=== PATIENT | female | born 1990 | race Caucasian/White ===

== ENCOUNTER → 2017-02-22 | Outpatient (REF) | payer MEDICAID ==
[2017-02-22 18:10] LABS: MEAN CORPUSCULAR HEMOGLOBIN 31.2 pg (27.0-33.0); MEAN CORPUSCULAR HGB CONC 34.3 g/dl (32.0-36.5); RED CELL DISTRIBUTION WIDTH 12.1 % (11.5-14.5)
[2017-02-22 19:21] LABS: HCG, SERUM QUANTITATIVE 37312 MIU/ML
== END ==
LOC: M LAB REF 16:45
PROVIDERS: ATTEND Advanced Practice Midwife
DX: O36.80X0 Pregnancy with inconclusive fetal viability, not applicable or unspecified (principal)

== ENCOUNTER → 2017-05-19 | Outpatient (CLI) | payer OTHER ==
--- NOTE | 2017-05-19 09:32 | REP ---
OB ULTRASOUND: Real-time sonographic evaluation of the gravid uterus performed. There is a single living intrauterine gestation with estimated gestational age of 19 weeks 6 days. EDC 10/07/2017. BPD 48 mm 20 weeks 4 days HC 175 mm 20 weeks 0 days AC 149 mm 20 weeks 1 day FL 32 mm 19 weeks 6 days HC/AC ratio 1.17 within normal range. Estimated weight 327 grams. heart rate 147 beats per minute. SEEN/GROSSLY UNREMARKABLE Lateral ventricles Yes Posterior fossa Yes Upper lip Yes Four-chamber heart Yes LVOT Yes RVOT Yes Stomach Yes Cord insertion Yes Three vessel cord Yes Kidneys Yes Bladder Yes Spine No position is vertex. Placenta posterior and grade 0 with no previa or abruption. Amniotic fluid within normal limits. Cervix is closed and measures 3.7 cm in length. Signed by Braydon Noriega MD 05/19/2017 04:53 P
== END ==
LOC: M SMT 08:13
PROVIDERS: ATTEND Advanced Practice Midwife
DX: Z34.81 Encounter for supervision of other normal pregnancy, first trimester (principal); Z3A.19 19 weeks gestation of pregnancy

== ENCOUNTER → 2017-06-07 | Outpatient (CLI) | payer OTHER ==
--- NOTE | 2017-06-07 10:04 | REP ---
Obstetric sonography: History: Supervision of followup anatomy. Comparison study May 19, 2017. Findings: Scanning through the gravid uterus demonstrates a viable single intrauterine gestation in variable lie. motion is observed and heart rate is recorded at 144 beats per minute. An anterior grade 0 placenta is seen without evidence of previa. Amniotic fluid is subjectively normal. Closed cervical length is 4.3 cm viewed transabdominally. No extrauterine abnormalities observed. There has been appropriate interval growth. Umbilical cord is seen around the neck. No anomaly is seen. The following anatomic structures are identified today and felt to be unremarkable: cranium, choroid plexus, cavum, cerebellum and posterior fossa, face and profile, lungs, four-chamber heart with left and right ventricular outflow tract views, diaphragm, left-sided stomach, abdominal wall cord insertion, three-vessel umbilical cord, kidneys and bladder, spine, upper and lower extremities. Biometry chart: BPD 5.7 cm = 23 weeks 2 days Head circumference 20.9 cm = 23 weeks 0 days Abdominal circumference 19.6 cm = 24 weeks 2 days Femur length 4.0 cm = 22 weeks 6 days Humeral length 3.8 cm = 23 weeks 4 days Cerebellum diameter 2.3 cm = 21 weeks 4 days HC/AC ratio normal 1.06. Cephalic index normal 0.75. Estimated weight 609 grams ,1 pound 5 ounces, 77th percentile for 22 weeks 4 days. Impression: Viable single intrauterine gestation at 22 weeks 6 days by today's composite criteria. Expected gestational age estimate based on prior sonography is 22 weeks 4 days. DHARA by prior sonography October 07, 2017. No anomaly seen. Signed by Vito Lewis MD 06/07/2017 02:45 P
== END ==
LOC: M SMT 08:14
PROVIDERS: ATTEND Advanced Practice Midwife
DX: Z34.82 Encounter for supervision of other normal pregnancy, second trimester (principal); Z3A.22 22 weeks gestation of pregnancy

== ENCOUNTER → 2017-07-20 | Outpatient (CLI) | payer OTHER ==
[2017-07-20 13:01] LABS: MEAN CORPUSCULAR HEMOGLOBIN 31.5 pg (27.0-33.0); RED CELL DISTRIBUTION WIDTH 12.6 % (11.5-14.5); WHITE BLOOD COUNT 7.4 10^3/uL (4.0-10.0)
== END ==
LOC: M LAB 10:30
PROVIDERS: ATTEND Obstetrics & Gynecology
DX: Z34.82 Encounter for supervision of other normal pregnancy, second trimester (principal)

== ENCOUNTER → 2017-09-08 | Outpatient (REF) | payer OTHER | LOC: M LAB REF 12:54 | PROVIDERS: ATTEND Advanced Practice Midwife | DX: Z34.83 Encounter for supervision of other normal pregnancy, third trimester (principal); Z36.85 Encounter for antenatal screening for Streptococcus B ==

== ENCOUNTER 2017-10-13 12:25 | Inpatient (IN) | payer OTHER ==
[2017-10-13 13:47] LABS: HEMATOCRIT 35.3 % (36.0-47.0); HEMOGLOBIN 12.1 g/dl (12.0-16.0); MEAN CORPUSCULAR HEMOGLOBIN 28.9 pg (27.0-33.0); MEAN CORPUSCULAR HGB CONC 34.3 g/dl (32.0-36.5); MEAN CORPUSCULAR VOLUME 84.4 fl (80.0-96.0); PLATELET COUNT, AUTOMATED 163 10^3/uL (150-450); RED BLOOD COUNT 4.18 10^6/uL (4.00-5.40); RED CELL DISTRIBUTION WIDTH 13.2 % (11.5-14.5)
[2017-10-13] MEDS: PENICILLIN G POTASSIUM IV 5 MU in D5W MINI-BAG PLUS 100 ML IV (13:58)
[2017-10-13 14:15] LABS: AMPHETAMINES URINE REFLEX NEGATIVE (NEGATIVE); BARBITURATES URINE REFLEX NEGATIVE (NEGATIVE); BENZODIAZEPINES URINE REFLEX NEGATIVE (NEGATIVE); CANNABINOIDS URINE REFLEX NEGATIVE (NEGATIVE); COCAINE METABOLITE URINE REFLE NEGATIVE (NEGATIVE); METHADONE URINE REFLEX NEGATIVE (NEGATIVE); OPIATES URINE REFLEX NEGATIVE (NEGATIVE); PHENCYCLIDINE URINE REFLEX NEGATIVE (NEGATIVE)
[2017-10-13] MEDS: LR 1,000 ML IV ×2 (17:13→22:08)
[2017-10-13] MEDS: OXYTOCIN DRIP 30 UNITS in APPROPRIATE DILUENT 1 EA IV (17:31)
[2017-10-13] MEDS ORDERED: PENICILLIN G POTASSIUM IV 2.5 MU in APPROPRIATE DILUENT 1 EA IV (18:00)
[2017-10-13] MEDS ORDERED: FENTANYL 2MCG/ML ROPIVACAINE 0.2% IN 0.9% NACL 200ML IVBAG As Ordered (20:14)
[2017-10-13] MEDS ORDERED: ePHEDrine SULFATE 25 MG/5 ML(5MG/ML) SYRINGE IV (21:15)
[2017-10-13] MEDS ORDERED: FENTANYL/ROPIVACAINE/NACL BAG 200 ML EPIDURAL (21:15)
[2017-10-13] MEDS ORDERED: LACTATED RINGER'S 1000 ML IV (21:15)
[2017-10-13] MEDS ORDERED: EPIDURAL/PCA KEYS XX (21:15)
[2017-10-13] MEDS ORDERED: NALOXONE INJ 0.4 MG/1 ML VIAL (J2310) IV (21:15)
[2017-10-13] MEDS ORDERED: EPIDURAL COMMENT XX (21:15)
[2017-10-13] MEDS ORDERED: REFRIGERATOR IV KEYS XX (21:15)
[2017-10-13] MEDS ORDERED: diphenhydrAMINE INJ 50MG/ML VIAL (J1200) IV (21:15)
[2017-10-13] MEDS: ONDANSETRON 4MG/2ML VIAL (J2405) IV (22:09)
[2017-10-14] MEDS: LR 1,000 ML IV (01:24)
[2017-10-14] MEDS: OXYTOCIN DRIP 30 UNITS in APPROPRIATE DILUENT 1 EA IV (04:43)
[2017-10-14] MEDS ORDERED: MEASLES,MUMPS,RUBELLA VACCINE INJ (MMR-II) (90707) SC (04:45)
[2017-10-14] MEDS ORDERED: DIBUCAINE 1% OINTMENT 30GM TOP (04:45)
[2017-10-14] MEDS ORDERED: RHOGAM 300 MCG (1500 IU) INJ (J2790) IM (04:45)
[2017-10-14] MEDS ORDERED: METHYLERGONOVINE MALEATE 0.2 MG TAB PO (04:45)
[2017-10-14] MEDS: PRENATAL VITAMINS CHEWABLE TABLET PO (07:48)
[2017-10-14] MEDS: IBUPROFEN 800 MG TAB PO ×2 (07:49→16:25)
[2017-10-14] MEDS: ACETAMINOPHEN 500 MG TAB PO ×2 (12:42→22:18)
[2017-10-14] MEDS: DOCUSATE SODIUM 100 MG CAP PO (22:18)
[2017-10-15] MEDS: PRENATAL VITAMINS CHEWABLE TABLET PO (08:14)
[2017-10-15] MEDS: IBUPROFEN 800 MG TAB PO (08:15)
== END 2017-10-15 17:07 | disposition home or self-care (01) | DRG 560 ==
LOC: M LDI 12:25 → M OBS 10-14 06:51
PROVIDERS: Advanced Practice Midwife
PROC: 10E0XZZ Delivery of Products of Conception, External Approach (ICD-10-PCS; principal; 2017-10-14)
PROC: 0KQM0ZZ Repair Perineum Muscle, Open Approach (ICD-10-PCS; 2017-10-14)
DX: O48.0 Post-term pregnancy (principal); O70.1 Second degree perineal laceration during delivery; Z3A.41 41 weeks gestation of pregnancy; Z37.0 Single live birth

== ENCOUNTER → 2019-04-18 | Outpatient (CLI) | payer MEDICAID ==
[~2019-04-18] MED LIST: MAPA500T2 PO; MOTR200T44 PO; PRENTAB9 PO
--- NOTE | 2019-04-18 15:14 | REP ---
FIRST TRIMESTER ULTRASOUND: Real-time sonographic evaluation of the gravid uterus is performed utilizing transabdominal and endovaginal technique. There is a single living intrauterine gestation, estimated gestational age 6 weeks 1 day based on a crown-rump length of 5 mm, EDC 12/11/2019. heart rate 116 beats per minute. Subchorionic hemorrhage is seen superiorly measuring 3.1 x 2.2 x 2.5 cm. Cystic structure of the left ovary is probably a corpus luteum measuring 1.7 x 1.0 x 1.6 cm. There is no torsion of either ovary. Electronically Signed by Braydon Noriega MD 04/20/2019 10:20 A
== END ==
LOC: M RAD 13:12
PROVIDERS: ATTEND Obstetrics & Gynecology
DX: O20.0 Threatened abortion (principal); Z3A.01 Less than 8 weeks gestation of pregnancy

== ENCOUNTER → 2019-05-22 | Outpatient (CLI) | payer OTHER ==
[2019-05-22 13:24] LABS: BASO % 0.3 % (0.0-1.0); EOS # 0.1 10^3/uL (0.0-0.50); EOS % 1.7 % (0.0-3.0); HEMATOCRIT 37.2 % (36.0-47.0); HEMOGLOBIN 12.7 g/dl (12.0-15.5); LYMPH # 1.2 10^3/uL (1.5-6.5); LYMPH % 21.1 % (24.0-44.0); MEAN CORPUSCULAR HEMOGLOBIN 31.1 pg (27.0-33.0); MEAN CORPUSCULAR HGB CONC 34.1 g/dl (32.0-36.5); MEAN CORPUSCULAR VOLUME 91.2 fl (80.0-96.0); MONO # 0.3 10^3/uL (0.0-0.8); MONO % 5.4 % (0.0-5.0); NEUTROPHILS # 4.1 10^3/uL (1.8-7.7); PLATELET COUNT, AUTOMATED 176 10^3/uL (150-450); RED BLOOD COUNT 4.08 10^6/uL (4.00-5.40); WHITE BLOOD COUNT 5.8 10^3/uL (4.0-10.0)
[2019-05-22 14:17] LABS: HEPATITIS C VIRUS ABY INDEX 0.1 INDEX (<0.8); HIV 1&2 SCREEN CENTAUR NEGATIVE (NEGATIVE); RUBELLA IgG QUALITATIVE IMMUNE (IMMUNE)
[2019-05-22 14:55] LABS: CHLAMYDIA DNA AMPLIFICATION NEGATIVE (NEGATIVE); GC DNA AMPLIFICATION NEGATIVE (NEGATIVE)
== END ==
LOC: M SMT 10:52
PROVIDERS: ATTEND Advanced Practice Midwife
DX: Z34.81 Encounter for supervision of other normal pregnancy, first trimester (principal); Z3A.08 8 weeks gestation of pregnancy

== ENCOUNTER → 2019-07-17 | Outpatient (CLI) | payer OTHER ==
--- NOTE | 2019-07-17 12:57 | REP ---
OB ULTRASOUND: Real-time sonographic evaluation of the gravid uterus is performed. There is a single living intrauterine gestation. Estimated gestational age 29 weeks, EDC 12/11/2019. Today's measurements indicate appropriate growth. BPD 45 mm = 19 weeks 4 days, 62nd percentile HC 165 mm = 19 weeks 2 days, 55th percentile AC 138 mm = 19 weeks 1 day, 53rd percentile Femur length 29 mm = 19 weeks 0 days, 49th percentile HC/AC ratio 1.20 within normal range. Estimated weight 276 grams, 50th percentile. Cervix is closed and measures 5.3 cm in length. heart rate 147 beats per minute. SEEN/GROSSLY UNREMARKABLE Lateral ventricles Yes Posterior fossa Yes Upper lip Yes Four-chamber heart Yes LVOT Yes RVOT Yes Stomach Yes Cord insertion Yes Three vessel cord Yes Kidneys Yes Bladder Yes Spine Yes position: Variable. Placenta: On the right, grade 0, with no previa or abruption. Amniotic fluid: Within normal limits. Electronically Signed by Braydon Noriega MD 07/17/2019 11:35 P
== END ==
LOC: M RAD 09:39
PROVIDERS: ATTEND Advanced Practice Midwife
DX: Z34.82 Encounter for supervision of other normal pregnancy, second trimester (principal)

== ENCOUNTER → 2019-10-26 | Outpatient (CLI) | payer OTHER ==
[2019-10-26 13:26] LABS: HEMATOCRIT 36.2 % (36.0-47.0); HEMOGLOBIN 11.7 g/dl (12.0-15.5); MEAN CORPUSCULAR HEMOGLOBIN 29.4 pg (27.0-33.0); MEAN CORPUSCULAR HGB CONC 32.3 g/dl (32.0-36.5); PLATELET COUNT, AUTOMATED 154 10^3/uL (150-450); RED BLOOD COUNT 3.98 10^6/uL (4.00-5.40); WHITE BLOOD COUNT 7.3 10^3/uL (4.0-10.0)
== END ==
LOC: M PLALAB 09:18
PROVIDERS: ATTEND Advanced Practice Midwife
DX: Z36.89 Encounter for other specified antenatal screening (principal)

== ENCOUNTER → 2019-11-23 | Outpatient (REF) | payer OTHER | LOC: M SFHCWAGY 16:50 | PROVIDERS: ATTEND Advanced Practice Midwife | DX: Z36.85 Encounter for antenatal screening for Streptococcus B (principal) ==

== ENCOUNTER 2019-12-11 02:13 | Inpatient (IN) | payer OTHER ==
[~2019-12-11] VITALS: Ht 170.2 cm; Wt 80.5 kg
[2019-12-11] MEDS ORDERED: OXYTOCIN 30 UNITS IN 0.9% NaCl 500ML IV BAG (J2590) As Ordered ONE (02:17)
[2019-12-11 02:42] LABS: HEMATOCRIT 36.4 % (36.0-47.0); HEMOGLOBIN 12.5 g/dl (12.0-15.5); MEAN CORPUSCULAR HEMOGLOBIN 28.6 pg (27.0-33.0); MEAN CORPUSCULAR HGB CONC 34.3 g/dl (32.0-36.5); MEAN CORPUSCULAR VOLUME 83.3 fl (80.0-96.0); PLATELET COUNT, AUTOMATED 182 10^3/uL (150-450); RED BLOOD COUNT 4.37 10^6/uL (4.00-5.40); WHITE BLOOD COUNT 8.9 10^3/uL (4.0-10.0)
[2019-12-11 02:49] VITALS: BP 128/71
[2019-12-11] MEDS ORDERED: METHYLERGONOVINE MALEATE 0.2 MG/ML VIAL (J2210) As Ordered ONE (02:54)
[2019-12-11] MEDS ORDERED: OXYTOCIN DRIP 30 UNITS in IV 1 EA IV SCH (03:39)
[2019-12-11] MEDS ORDERED: ACETAMINOPHEN 500 MG TAB PO PRN (03:45)
[2019-12-11] MEDS ORDERED: RHOGAM 300 MCG (1500 IU) INJ (J2790) IM SCH (03:45)
[2019-12-11] MEDS ORDERED: IBUPROFEN 600 MG TAB PO PRN (03:45)
[2019-12-11] MEDS ORDERED: MEASLES,MUMPS,RUBELLA VACCINE INJ (MMR-II) (90707) SC SCH (03:45)
[2019-12-11] MEDS ORDERED: METHYLERGONOVINE MALEATE 0.2 MG/ML VIAL (J2210) IM ONE (03:45)
[2019-12-11] MEDS ORDERED: DOCUSATE SODIUM 100 MG CAP PO PRN (03:45)
[2019-12-11] MEDS ORDERED: ACETAMINOPHEN TAB 650MG DOSE (2X325MG) PO PRN (03:45)
[2019-12-11] MEDS ORDERED: METHYLERGONOVINE MALEATE 0.2 MG TAB PO PRN (03:45)
[2019-12-11] MEDS ORDERED: IBUPROFEN 800 MG TAB PO PRN (03:45)
[2019-12-11] MEDS ORDERED: LIDOCAINE 1% MDV 20ML VIAL INFIL ONE (03:45)
[2019-12-11] MEDS ORDERED: DIBUCAINE 1% OINTMENT 30GM TOP PRN (03:45)
[2019-12-11 04:50] VITALS: BP 99/63
--- NOTE | 2019-12-11 06:29 | DN ---
DATE: 12/11/2019 HISTORY: Aleyda is a 29-year-old 4, para 2-0-2-2 now who was admitted to labor and delivery in active labor. She had spontaneous rupture of membranes of clear fluid at home at 0114. She was completely dilated at 0211. She pushed to a normal spontaneous vaginal delivery of live male in right occiput anterior (LEXIS) position with restitution to right occiput transverse (ROT) position at 0239. There is a nuchal cord times one which was removed manually at the time of delivery. The shoulders delivered spontaneously and the corpus immediately followed. The male was placed on maternal abdomen crying and active and his mouth and nares were bulb suctioned. The cord was clamped times two once pulsations ceased and cut by the father of baby under my direction. Spontaneous expulsion of an intact placenta with three-vessel cord by Barros mechanism was at 0245. Uterine hemostasis achieved with IV Pitocin rapid infusion, uterine fundal massage and Methergine 0.2 mg intramuscularly (IM). Estimated blood loss 500 mL. Perineum and vagina inspected, noted to have a first-degree midline laceration. The laceration was infiltrated with lidocaine and repaired with 3-0 Vicryl Rapide in the usual fashion. male weighed 8 pounds 10 ounces, 3920 grams, 9 and 9. Mom is going to breastfeed. The family is undecided as what they are going to name their son at this point. At the close of delivery lap counts, needle counts and instrument counts were correct and verified.
--- NOTE | 2019-12-11 06:42 | HPE ---
DATE OF ADMISSION: 12/11/2019 Aleyad is a 29-year-old, 4, para 2-0-2-2, 39-1/7 weeks gestation, estimated date of confinement (EDC) of 12/16/2019 based on last menstrual period and confirmed by first trimester ultrasound, presents to labor and delivery today in active labor, transitional stage. Reports spontaneous rupture of membranes at 0114 hours and some normal bloody show, contractions immediately starting following rupture of membranes. She does report low continued vaginal bleeding, continued leakage of fluid, the fetus has been active, and painful contractions. care was initiated at [facility] in the first trimester. course has been uncomplicated. OBSTETRIC HISTORY: February 2009 elective termination. January 2015 elective termination. October 2017, 41-week gestation, spontaneous vaginal delivery, 8-pound 11-ounce male. OBSTETRIC LABS: A positive, antibody screen negative, rubella immune, VDRL nonreactive. Urine culture no growth. Hepatitis B surface antigen negative. HIV negative. Hepatitis C antibody nonreactive. Gonorrhea and chlamydia negative. Aneuploidy screening negative male fetus. Gestational diabetic screening normal. GBS negative. PAST MEDICAL HISTORY: Condyloma, childhood varicella. SURGERIES: None. FAMILY HISTORY: Mental retardation. SOCIAL HISTORY: The patient is single; however, her partner is at bedside and very supportive. She is a nonsmoker. Denies alcohol and drug use. History of genital condyloma. No history of abuse, physical, sexual, and emotional. ALLERGIES: No known drug allergies. CURRENT MEDICATIONS: Include vitamin. OBJECTIVE: Upon arrival, blood pressure 128/71, pulse of 77. The patient was fully dilated. heart rate 140 with moderate variability, positive accelerations, no decelerations. Kevin every 2 minutes. Full dilation. ASSESSMENT: Intrauterine at 39-1/7 weeks. heart rate category I. Transition stage of labor. PLAN: Admit patient to labor and delivery. Saline lock. Out of bed ad james. Anticipate normal spontaneous vaginal delivery.
[2019-12-11] MEDS: PRENATAL VITAMINS CHEWABLE TABLET PO SCH (07:46)
[2019-12-11 18:25] VITALS: BP 117/73
[2019-12-12 06:00] VITALS: BP 109/66
[2019-12-12] MEDS ORDERED: ACET-683 PO (07:12)
[2019-12-12] MEDS ORDERED: IBUP80TA PO (07:12)
[2019-12-12 07:30] VITALS: BP 92/53
[2019-12-12] MEDS: PRENATAL VITAMINS CHEWABLE TABLET PO SCH (08:39)
[2019-12-12] MEDS ORDERED: INFLUENZA QUADRIVALENT PF VACCINE 0.5ML SYRINGE (90686) IM ONE (09:00)
== END 2019-12-12 15:27 | disposition home or self-care (01) | DRG 560 ==
LOC: M LDI 02:13 → M OBS 04:39
PROVIDERS: ADMIT Advanced Practice Midwife; ATTEND Advanced Practice Midwife
PROC: 10E0XZZ Delivery of Products of Conception, External Approach (ICD-10-PCS; principal; 2019-12-11)
PROC: 0HQ9XZZ Repair Perineum Skin, External Approach (ICD-10-PCS; 2019-12-11)
DX: O69.81X0 Labor and delivery complicated by cord around neck, without compression, not applicable or unspecified (principal); Z3A.39 39 weeks gestation of pregnancy; Z37.0 Single live birth; O70.0 First degree perineal laceration during delivery

== ENCOUNTER → 2022-09-02 | Outpatient (REF) | payer OTHER ==
[~2022-09-02] MED LIST changes: +ACET-683 PO; +IBUP80TA PO
[2022-09-02 16:54] LABS: BASO # 0.1 10^3/uL (0.0-0.2); BASO % 0.9 % (0.0-1.0); EOS # 0.2 10^3/uL (0.0-0.5); EOS % 2.7 % (0.0-3.0); HEMATOCRIT 34.9 % (36.0-47.0); HEMOGLOBIN 11.6 g/dl (12.0-15.5); LYMPH # 1.8 10^3/uL (1.5-5.0); LYMPH % 32.4 % (24.0-44.0); MEAN CORPUSCULAR HEMOGLOBIN 29.4 pg (27.0-33.0); MEAN CORPUSCULAR HGB CONC 33.2 g/dl (32.0-36.5); MEAN CORPUSCULAR VOLUME 88.6 fl (80.0-96.0); MONO # 0.4 10^3/uL (0.0-0.8); MONO % 6.4 % (2.0-8.0); NEUTROPHILS # 3.1 10^3/uL (1.5-8.5); NEUTROPHILS % 57.2 % (36.0-66.0); PLATELET COUNT, AUTOMATED 208 10^3/uL (150-450); RED BLOOD COUNT 3.94 10^6/uL (4.00-5.40); WHITE BLOOD COUNT 5.5 10^3/uL (4.0-10.0)
[2022-09-02 18:08] LABS: BLOOD UREA NITROGEN 10 MG/DL (9-23); CALCIUM LEVEL 8.2 MG/DL (8.5-10.1); CARBON DIOXIDE LEVEL 24 MMOL/L (20-31); CHLORIDE LEVEL 104 MMOL/L (98-107); CREATININE FOR GFR 0.58 MG/DL (0.55-1.30); GLOMERULAR FILTRATION RATE > 60.0 (>60); GLUCOSE, FASTING 69 MG/DL (60-100); POTASSIUM SERUM 4.3 MMOL/L (3.5-5.1); SODIUM LEVEL 137 MMOL/L (136-145)
== END ==
LOC: M LAB REF 15:56
PROVIDERS: ATTEND Nurse Practitioner Family
DX: Z01.818 Encounter for other preprocedural examination (principal)

== ENCOUNTER → 2022-09-06 | Outpatient (CLI) | payer OTHER | LOC: M LABSMTC 09:22 | PROVIDERS: ATTEND Anesthesiology | DX: Z01.812 Encounter for preprocedural laboratory examination (principal); Z11.52 Encounter for screening for COVID-19 ==

== ENCOUNTER 2022-09-08 08:54 | Day surgery (SDC) | payer OTHER ==
[~2022-09-08] VITALS: Ht 170.2 cm; Wt 70.3 kg
[~2022-09-08 08:54] MED LIST changes: +LIDOCAINE 2% 100MG/5ML SDV (FOR ANES.) As Ordered ONE; +MIDAZOLAM INJ 2MG/2ML VIAL (J2250 PER 1MG) As Ordered ONE; +ONDANSETRON 4MG 2ML VIAL As Ordered ONE; +ROCURONIUM BROMIDE 50 MG/5 ML VIAL As Ordered ONE; +SUGAMMADEX SODIUM 500 MG/5 ML VIAL (BRIDION) As Ordered ONE; +ceFAZolin SOD 2 GM in IV 1 EA IV ONE; +dexameTHASONE 4 MG/ML 1ML VIAL (J1100 PER 1MG) As Ordered ONE; +fentaNYL 100 MCG/2 ML INJECTION As Ordered ONE; +propofoL 200 MG/20 ML VIAL As Ordered ONE
[2022-09-08] MEDS ORDERED: LR 1,000 ML IV SCH (09:00)
== END 2022-09-08 10:30 | disposition home or self-care (01) ==
LOC: M SDC 08:54
PROVIDERS: ATTEND Plastic Surgery Surgery of the Hand
DX: N62 Hypertrophy of breast (principal); Z53.09 Procedure and treatment not carried out because of other contraindication

== ENCOUNTER → 2023-03-09 | Outpatient (REF) | payer OTHER ==
[~2023-03-09] MED LIST changes: -LIDOCAINE 2% 100MG/5ML SDV (FOR ANES.) As Ordered ONE; -MIDAZOLAM INJ 2MG/2ML VIAL (J2250 PER 1MG) As Ordered ONE; -ONDANSETRON 4MG 2ML VIAL As Ordered ONE; -ROCURONIUM BROMIDE 50 MG/5 ML VIAL As Ordered ONE; -SUGAMMADEX SODIUM 500 MG/5 ML VIAL (BRIDION) As Ordered ONE; -ceFAZolin SOD 2 GM in IV 1 EA IV ONE; -dexameTHASONE 4 MG/ML 1ML VIAL (J1100 PER 1MG) As Ordered ONE; -fentaNYL 100 MCG/2 ML INJECTION As Ordered ONE; -propofoL 200 MG/20 ML VIAL As Ordered ONE
[2023-03-09 18:08] LABS: BASO % 0.6 % (0.0-1.0); EOS # 0.2 10^3/uL (0.0-0.5); EOS % 2.3 % (0.0-3.0); HEMATOCRIT 37.1 % (36.0-47.0); HEMOGLOBIN 12.4 g/dl (12.0-15.5); LYMPH % 30.7 % (24.0-44.0); MEAN CORPUSCULAR HEMOGLOBIN 28.8 pg (27.0-33.0); MEAN CORPUSCULAR HGB CONC 33.4 g/dl (32.0-36.5); MEAN CORPUSCULAR VOLUME 86.3 fl (80.0-96.0); MONO # 0.4 10^3/uL (0.0-0.8); MONO % 5.5 % (2.0-8.0); NEUTROPHILS % 60.7 % (36.0-66.0); PLATELET COUNT, AUTOMATED 245 10^3/uL (150-450); WHITE BLOOD COUNT 6.6 10^3/uL (4.0-10.0)
[2023-03-09 18:37] LABS: BLOOD UREA NITROGEN 13 MG/DL (9-23); CARBON DIOXIDE LEVEL 25 MMOL/L (20-31); CHLORIDE LEVEL 105 MMOL/L (98-107); CREATININE FOR GFR 0.78 MG/DL (0.55-1.30); FERRITIN 9.3 NG/ML (7.3-270.7); GLOMERULAR FILTRATION RATE > 60.0 (>60); GLUCOSE, FASTING 74 MG/DL (60-100); IRON (FE) 51 UG/DL (50-170); PERCENT SATURATION 16.5 % (13.2-45.0); SODIUM LEVEL 140 MMOL/L (136-145); TOTAL IRON BINDING CAPACITY 310 UG/DL (250-425)
[2023-03-09 18:38] LABS: THYROID STIMULATING HORMONE 0.839 uIU/ML (0.55-4.78); TOTAL 25(OH) VITAMIN D 36.5 NG/ML (20.0-100.0)
== END ==
LOC: M LAB REF 17:19
PROVIDERS: ATTEND Pediatrics
DX: Z01.818 Encounter for other preprocedural examination (principal); E55.9 Vitamin D deficiency, unspecified; D64.9 Anemia, unspecified

== ENCOUNTER 2023-03-22 06:08 | Observation (INO) | payer OTHER ==
[~2023-03-22] VITALS: Ht 170.2 cm; Wt 69.3 kg
[~2023-03-22 06:08] MED LIST changes: +ceFAZolin SOD 2 GM in IV 1 EA IV ONE
[2023-03-22] MEDS ORDERED: LR 1,000 ML IV SCH ×2 (06:10→11:40)
[2023-03-22] MEDS ORDERED: HOME MED LIST COMPLETE! XX SCH (06:45)
[2023-03-22] MEDS ORDERED: ROCURONIUM BROMIDE 50MG/5ML VIAL As Ordered ONE ×2 (07:25→08:15)
[2023-03-22] MEDS ORDERED: propofoL 200 MG/20 ML VIAL As Ordered ONE (07:25)
[2023-03-22] MEDS ORDERED: LIDOCAINE 2% 100MG/5ML SDV (FOR ANES.) As Ordered ONE (07:25)
[2023-03-22] MEDS ORDERED: fentaNYL 250 MCG/5 ML INJECTION As Ordered ONE (07:25)
[2023-03-22] MEDS ORDERED: MIDAZOLAM INJ 2MG/2ML VIAL As Ordered ONE (07:26)
[2023-03-22] MEDS ORDERED: GENTAMICIN SULF 80MG/2ML VIAL As Ordered ONE (07:29)
[2023-03-22] MEDS ORDERED: SUGAMMADEX SODIUM 500 MG/5 ML VIAL (BRIDION) As Ordered ONE (08:15)
[2023-03-22] MEDS ORDERED: ACETAMINOPHEN 1000MG 100ML IV BAG As Ordered ONE (08:15)
[2023-03-22] MEDS ORDERED: ONDANSETRON 4MG 2ML VIAL As Ordered ONE ×2 (08:15→09:04)
[2023-03-22] MEDS ORDERED: ePHEDrine SULFATE 25 MG/5 ML(5MG/ML) SYRINGE As Ordered ONE (08:19)
[2023-03-22] MEDS ORDERED: HYDROmorphone HCL 2MG/ML 1ML VIAL As Ordered ONE (08:46)
[2023-03-22] MEDS ORDERED: ONDANSETRON 4MG 2ML VIAL IV PRN (11:40)
[2023-03-22] MEDS ORDERED: oxyCODONE 5MG TAB PO PRN (11:40)
[2023-03-22] MEDS: fentaNYL 100 MCG/2 ML INJECTION IV PRN ×2 (12:15→12:23)
[2023-03-22] MEDS ORDERED: SEVOFLURANE INHAL SOLN 250 ML BTL As Ordered ONE (12:18)
[2023-03-22] MEDS: LR 1,000 ML IV SCH ×2 (12:20→23:57)
[2023-03-22] MEDS ORDERED: HYDROMORPHONE HCL 0.5 MG/ 0.5 ML SYRINGE IV PRN (12:20)
[2023-03-22] MEDS ORDERED: ACETAMINOPHEN TAB 650MG DOSE (2X325MG) PO PRN (12:20)
[2023-03-22] MEDS ORDERED: traMADol 50 MG TAB PO PRN (12:20)
[2023-03-22] MEDS ORDERED: METOCLOPRAMIDE INJ 10MG/2ML VIAL IV PRN (12:45)
[2023-03-22 14:45] VITALS: BP 124/72; TEMP 97.3; O2SAT 97
[2023-03-22 15:45] VITALS: BP 119/78; TEMP 97.9; O2SAT 98
[2023-03-22] MEDS: ONDANSETRON 4MG 2ML VIAL IV PRN (16:13)
[2023-03-22] MEDS: ceFAZolin SOD 1 GM in D5W MINI-BAG PLUS 50 ML IV SCH ×2 (16:13→23:57)
[2023-03-22] MEDS: PERCOCET 5MG/325MG TAB PO PRN ×2 (19:02→23:56)
[2023-03-22 19:37] VITALS: BP 101/67; TEMP 98.1; O2SAT 98
[2023-03-22] MEDS ORDERED: MORPHINE 4 MG/ML 1ML VIAL IV ONE (22:00)
[2023-03-22 23:02] VITALS: BP 101/66; TEMP 97.9; O2SAT 98
[2023-03-23] MEDS: ONDANSETRON 4MG 2ML VIAL IV PRN (04:04)
[2023-03-23] MEDS: PERCOCET 5MG/325MG TAB PO PRN ×2 (04:05→08:40)
[2023-03-23 06:19] VITALS: BP 92/51; TEMP 97.7; O2SAT 98
[2023-03-23 08:03] VITALS: BP 108/80
[2023-03-23] MEDS ORDERED: OXYC1TAB23 PO (12:32)
== END 2023-03-23 13:25 | disposition home or self-care (01) ==
LOC: M SDC 06:08 → M MS5PR 06:09
PROVIDERS: ADMIT Plastic Surgery Surgery of the Hand; ATTEND Plastic Surgery Surgery of the Hand
DX: N62 Hypertrophy of breast (principal); M54.6 Pain in thoracic spine; M54.2 Cervicalgia; Z87.891 Personal history of nicotine dependence
CPT/HCPCS: 19318; 81025; 87635; 88305; 96374; 96375; 96376; C9290; J0131; J0690; J1100; J1170; J1580; J2250; J2405; J2765; J3010; S0020

== ENCOUNTER → 2023-05-28 | Outpatient (CLI) | payer OTHER ==
[~2023-05-28] MED LIST changes: +OXYC1TAB23 PO; -ceFAZolin SOD 2 GM in IV 1 EA IV ONE
== END ==
LOC: M RAD 16:36
PROVIDERS: ATTEND Pediatrics
DX: B94.8 Sequelae of other specified infectious and parasitic diseases (principal)

== ENCOUNTER → 2024-06-30 | Outpatient (REF) | payer OTHER ==
[2024-07-03 13:43] LABS: MUMPS VIRUS IgG ANTIBODY 14.3 AU/mL (>10.99); RUBEOLA IgG ANTIBODY 53.7 AU/mL (>16.49)
== END ==
LOC: M LAB REF 16:20
PROVIDERS: ATTEND Physician Assistant
DX: Z76.89 Persons encountering health services in other specified circumstances (principal)